=== PATIENT | female | born 1955 | race Caucasian/White ===

== ENCOUNTER 2018-11-18 20:57 | Inpatient (IN) | payer MEDICARE, OTHER ==
--- NOTE | 2018-11-18 21:20 | ED Physician Chart ---
ED Chief Complaint/HPI - Patient Information Date Seen:: 11/18/18 Time Seen:: 21:15 Chief Complaint:: cough and congestion History of Present Illness:: this is a 63 yo female who is concerned about generalize weakness, abdominal pain and has diabetes, hypertension and anxiety. Allergies:: Allergies Allergy/AdvReac Type Severity Reaction Status Date / Time No Known Allergies Allergy Verified 11/18/18 21:05 Vitals:: Vital Signs - 8 hr 11/18/18 21:00 Temp 98.1 F HR 90 RR 18 BP 137/65 O2 Sat % 96 Historian:: Patient Review:: Nurse's Note Reviewed ED Review of Systems - Review of Systems General/Constitutional: No fever, No chills, No weight loss, No weakness, No diaphoresis, No edema, No loss of appetite Skin: No skin lesions, No rash, No bruising Head: No headache, No light-headedness Eyes: No loss of vision, No pain, No diplopia ENT: No earache, No nasal drainage, No sore throat, No tinnitus Neck: No neck pain, No swelling, No thyromegaly, No stiffness, No mass noted Cardio Vascular: No chest pain, No palpitations, No PND, No orthopnea, No edema Pulmonary: No SOB, No cough, No sputum, No wheezing GI: No nausea, No vomiting, No diarrhea, Pain, No melena, No hematochezia, No constipation, No hematemesis G/U: No dysuria, No frequency, No hematuria Musculoskeletal: No bone or joint pain, No back pain, No muscle pain Endocrine: No polyuria, No polydipsia Psychiatric: No prior psych history, No depression, No anxiety, No suicidal ideation Hematopoietic: No bruising, No lymphadenopathy Allergic/Immuno: No urticaria, No angioedema Neurological: No syncope, No focal symptoms, No weakness, No paresthesia, No headache, No seizure, No dizziness, No confusion, No vertigo ED Past Medical History - Past Medical History Obtainable: Yes Past Medical History: HTN, DM, CAD, Dyslipidemia, PUD/GERD, Other (gout) Family History: None Social History: Smoker, No Alcohol, No Drug Use, Care Facility Surgical History: None Psychiatricy History: Depression, Dementia Family Medical History - Family Member Mother History Unknown: Yes ED Physical Exam - Physical Examination General/Constitutional: Awake, Well-developed, well-nourished, Alert, No distress, GCS 15, Non-toxic appearing, Ambulatory Other Gen/Cons comments:: obese Head: Atraumatic Eyes: Lids, conjuctiva normal, PERRL, EOMI Skin: Nl inspection, No rash, No skin lesions, No ecchymosis, Well hydrated, No lymphadenopathy ENMT: External ears, nose nl, Nasal exam nl, Lips, teeth, gums nl Neck: Nontender, Full ROM w/o pain, No JVD, No nuchal rigidity, No bruit, No mass, No stridor Respiratory: Nl effort/Exclusion, Clear to Auscultation, No Wheeze/Rhonchi/Rales Other Respiratory comments:: small puncture wound noted on the anterior chest wall Cardio Vascular: RRR, No murmur, gallop, rubs, NL S1 S2 GI: No tenderness/rebounding/guarding, No organomegaly, No hernia, Normal BS's, Nondistended, No mass/bruits, No McBurney tenderness : No CVA tenderness Extremities: No tenderness or effusion, Full ROM, normal strength in all extremities, No edema, Normal digits & nails Neuro/Psych: Alert/oriented, DTR's symmetric, Normal sensory exam, Normal motor strength, Judgement/insight normal, Mood normal, Normal gait, No focal deficits Misc: Normal back, No paraspinal tenderness ED Labs/Radiology/EKG Results - Radiology Results Results: chest x-ray = right middle lobe infiltrate. - EKG Interpretations EKG Time:: 21:23 Rate & Rhythm: rate=92 sinus Show Low: right axis Intervals: no ectopy ED Septic Shock - . Is Septic Shock (SBP<90, OR Lactate>4 mmol\L) present?: No - <6hrs of presentation: Vital Signs: Vital Signs - 8 hr 11/18/18 21:00 Temp 98.1 F HR 90 RR 18 BP 137/65 O2 Sat % 96 ED Reassessment (Disposition) - Diagnosis Diagnosis:: pneumonia diabetes mellitus two large ventral hernias. - Patient Disposition Discharge/Transfer:: Acute Care w/in this hosp Admitting Medical Physician:: Avel Fowler Condition at Disposition:: Stable
[2018-11-18 21:49] LABS: % BASOPHILS 0.8 % (0.0-2.0); % EOSINOPHILS 1.6 % (0.0-5.0); % LYMPHOCYTES 22.7 % (20.0-50.0); % MONOCYTES 6.6 % (2.0-10.0); % NEUTROPHILS 68.3 % (40.0-80.0); BASOPHILE ABSOLUTE 0.1 Th/cumm (0-0.2); EOSINOPHILE ABSOLUTE 0.2 Th/cmm (0.1-0.4); HEMATOCRIT 35.6 % (41.0-60); HEMOGLOBIN 11.7 gm/dL (12-16); LYMPHOCYTE ABSOLUTE 2.7 Th/cmm (1.5-3.0); MEAN CELL VOLUME 90.2 fl (81-100); MEAN CORPUSCULAR HEMOGLOBIN 29.7 pg (27.0-31.0); MEAN PLATELET VOLUME 6.8 fl; MONOCYTE ABSOLUTE 0.8 Th/cmm (0.3-1.0); NEUTROPHILE ABSOLUTE 8.3 Th/cmm (1.8-8.0); PLATELET COUNT 404 Th/cmm (150-400); RED BLOOD COUNT 3.94 Mil/cmm (3.80-5.10); RED CELL DISTRIBUTION WIDTH 12.1 % (11.5-20.0); WHITE BLOOD COUNT 12.1 Th/cmm (4.8-10.8)
[2018-11-18 22:05] LABS: ALB/GLOB RATIO 1.1 (1.0-1.8); ALBUMIN 3.9 gm/dL (3.7-5.3); ALKALINE PHOSPHATASE 116 U/L (34-104); ANION GAP 12.3 (7.0-16.0); BILIRUBIN,TOTAL 0.4 mg/dL (0.3-1.0); BUN - UREA NITROGEN 22 mg/dL (7-25); CALCIUM SERUM 9.9 mg/dL (8.6-10.3); CARBON DIOXIDE 24.7 mEq/L (21.0-31.0); CHLORIDE 100 mEq/L (98-107); CREATININE - SERUM 0.9 mg/dL (0.6-1.2); GFR AFRICAN-AMERICAN > 60.0 ml/min (>90); GFR NON AFRICAN-AMERICAN > 60.0 ml/min; GLUCOSE 425 mg/dL (70-105); SGOT 10 U/L (13-39); SGPT/ALT 13 U/L (7-52); SODIUM SERUM 133 mEq/L (136-145); TOTAL PROTEIN,SERUM 7.6 gm/dL (6.0-8.3)
[2018-11-18 22:06] LABS: INR 0.9 (0.5-1.4); PROTHROMBIN TIME (TEST) 9.4 SECONDS (9.5-11.5)
[2018-11-18 22:07] LABS: URINE SOURCE CLEAN C
[2018-11-18 22:09] LABS: URINE BILIRUBIN NEGATIVE (NEGATIVE); URINE BLOOD NEGATIVE (NEGATIVE); URINE GLUCOSE (UA) >=1000 mg/dL (NEGATIVE); URINE KETONE NEGATIVE (NEGATIVE); URINE LEUKOCYTE ESTERASE NEGATIVE (NEGATIVE); URINE MICROSCOPIC INDICATED? YES; URINE NITRATE NEGATIVE (NEGATIVE); URINE PROTEIN NEGATIVE (NEGATIVE); URINE UROBILINOGEN 0.2 E.U./dL (0.2 - 1.0)
[2018-11-18 22:10] LABS: ACETAMINOPHEN < 10.0 ug/mL (10.0-30.0); URIC ACID 6.1 mg/dL (2.3-6.6)
[2018-11-18 22:14] LABS: URINE COLOR STRAW
[2018-11-18 22:15] LABS: URINE CLARITY SLIGHT HAZY (CLEAR)
[2018-11-18 22:16] LABS: CHOLESTEROL 157 mg/dL (<200); HDL -HIGH DENSITY LIPOPROTEIN 39 mg/dL (23-92); TRIGLYCERIDES 153 mg/dL (<150)
[2018-11-18 22:18] LABS: URINE BACTERIA NONE SEEN /hpf (NONE SEEN); URINE EPITHELIAL CELLS FEW /lpf (FEW); URINE RBC NONE SEEN /hpf (0-5); URINE WBC 0-2 /hpf (0-5)
[2018-11-18 22:20] LABS: SALICYLATES (ASPIRIN) < 25.0 mg/L (30.0-100.0)
[2018-11-18] MEDS ORDERED: INSULIN HUMAN REGULAR 100 UNITS/ML UNIT IVP ONE (22:36)
[2018-11-18] MEDS ORDERED: INSULIN HUMAN REGULAR 100 UNITS/ML UNIT ONE (22:41)
[2018-11-18] MEDS ORDERED: Azithromycin 500 MG in Sodium Chloride 0.9% 250 ML IV ONE (22:47)
[2018-11-18] MEDS ORDERED: Albuterol Nebulizer 2.5mg/3mL HHN PRN (23:34)
[2018-11-18] MEDS ORDERED: Non-Formulary Item 1 EA (Glucagon,Human Recombinant [Glucagon Emergency Kit] 1 MG) IM PRN (23:34)
[2018-11-18] MEDS ORDERED: Magnesium Hydroxide (MOM) 30 mL UDC PO PRN (23:34)
[2018-11-18] MEDS ORDERED: guaiFENesin 200 MG/10 ML UDC PO PRN (23:35)
[2018-11-19 00:38] VITALS: BP 113/63
[2018-11-19] MEDS: Sodium Chloride 0.9% 1,000 ML IV SCH ×2 (01:15→13:51)
[2018-11-19] MEDS ORDERED: Pneumococcal Vaccine 0.5 mL Vial IM ONE (03:04)
[2018-11-19] MEDS: Ipratropium Neb 0.5 mg/2.5 mL UD HHN SCH ×4 (07:02→18:42)
[2018-11-19] MEDS: Albuterol Nebulizer 2.5mg/3mL HHN SCH ×4 (07:02→18:42)
[2018-11-19] MEDS: INSULIN HUMAN REGULAR 100 UNITS/ML UNIT SUBQ SCH ×2 (07:30→12:00)
[2018-11-19] MEDS: Multivitamin Tab PO SCH (09:53)
--- NOTE | 2018-11-19 10:51 | Diagnostic Imaging Report ---
CHEST X-RAY: AP view INDICATION: Cough COMPARISON: None FINDINGS: There is mild increased interstitial lung markings. There is no focal consolidation or pleural effusions The heart is normal in size. The osseous structures demonstrate no acute abnormalities. IMPRESSION: Mild increased central lung markings, nonspecific. Note, faint infiltrate of the left base is less likely but cannot be completely excluded. Correlate clinically. No focal consolidation identified.
--- NOTE | 2018-11-19 13:40 | History & Physical ---
ADMIT DATE: 11/19/2018 REQUESTING CONSULTATION: Avel Fowler D.O. REASON FOR CONSULTATION: Generalized weakness and the patient is being on a psych medications. HISTORY OF PRESENT ILLNESS: This patient is a 63-year-old woman, resident of [facility]. Information obtained directly interviewing the patient as well as reviewing the admission papers. The patient at this time is not able to provide much of information. The patient has been reported to have been getting increasingly agitated and aggressive according to the EMT, but the patient is also reported to have been having difficult time to articulate when I tried to talk to the patient and the patient is reporting that she is feeling too tired and does not want to take any medications. The patient is stating that she has been taking the Seroquel that is making her too sleepy and does not want to be on that. The patient at this time is not providing much of any other information. The patient is stating that she is too tired and wants to go to bed. PAST PSYCHIATRIC HISTORY: The patient denies any prior psychiatric hospitalizations and the patient at this time is stating that she could not feel it out why she has been taking the Seroquel. SUBSTANCE ABUSE HISTORY: None. PHYSICAL OR SEXUAL ABUSE HISTORY: None. SOCIAL HISTORY: The patient is a resident of the [facility]. MENTAL EXAMINATION: The patient is a 63-year-old moderately obese, superficially cooperative. Eye contact is poor. Mood is noted to be irritable. Affect is constricted. Insight and judgment are noted to be still impaired. Impulse control is noted to be poor at the time of the hospitalization, but at this time the patient is too drowsy and is not able to provide much of any information to me. The patient is alert and awake. Attention span and concentration are noted to be poor. The patient's short and long-term are noted to be intact. DIAGNOSTIC IMPRESSION: AXIS I: Mood disorder, not otherwise specified. PLAN: To hold the Seroquel for now until the patient is going to be fully assessed. Thank you, Dr. Fowler for allowing me to participate in the care of the patient. JOB# [id number]
[2018-11-19] MEDS ORDERED: GLUCAGON HCl 1 MG KIT IM PRN (13:45)
[2018-11-19] MEDS ORDERED: Dextrose 50% 50 mL Abboject IVP PRN (13:45)
--- NOTE | 2018-11-19 14:19 | History & Physical ---
ADMIT DATE: 11/18/2018 CHIEF COMPLAINT: Not feeling well, congestion. HISTORY OF PRESENT ILLNESS: This is a 63-year-old female with history of diabetes, hypertension, psych disorder, gout, admitted from nursing facility secondary to not feeling well and not acting a bit depressed, according to nursing staff refusing to take medication. The patient wanted to be evaluated. The patient was seen in the ER by Dr. Vazquez, to have a repeat chest x-ray. PAST MEDICAL HISTORY: As mentioned in history of present illness. PAST SURGICAL HISTORY: Status post abdominal surgery. ALLERGIES: No known drug allergies. MEDICATIONS: Tylenol, Colace, gabapentin, ibuprofen, Lantus, insulin sliding scale, losartan, metformin, multivitamin, Seroquel. FAMILY HISTORY: Noncontributory. SOCIAL HISTORY: The patient avid smoker, drinks occasionally. No intravenous drug use. 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 REVIEW OF SYSTEMS: GENERAL: Complains of not feeling well. HEAD, EYES, EARS, NOSE, AND THROAT: No blurred vision or pain. LUNGS: COPD. The patient gets severe shortness of breath, questionable history of emphysema. HEART: The patient with hypertension, diabetes. ABDOMEN: No nausea, vomiting, pain. : The patient denies increased frequency or dysuria. NEUROLOGIC: No complaints of being weak. Get easily tired. History of neuropathy. PHYSICAL EXAMINATION: VITAL SIGNS: Blood pressure 160/50, respirations 18, pulse 71, temperature 98.0. GENERAL: Middle-aged female. NECK: Supple. No mass. LUNGS: Equal breath sounds with few rhonchi. HEART: Regular rate and rhythm. Systolic ejection murmur. ABDOMEN: Soft, globular. EXTREMITIES: Positive excoriations limited. LABORATORY DATA: WBC 12, hemoglobin 11, platelets 404. INR 0.9. Sodium 133, potassium 4.0, BUN 22, creatinine 0.9, blood sugar ____ lowest, cholesterol 157. ASSESSMENT AND PLAN: Pneumonia, diabetes, hypertension, obesity, peripheral neuropathy, psych disorder, gait instability, gout, leukocytosis, anemia, hyponatremia. We will continue treatment. Continue IV antibiotic. ____ follow up. We will review the chest x-ray. Continue with current management. We will refer the patient for psych as well. JOB# [id number]
[2018-11-19] MEDS: INSULIN LISPRO SLIDING SCALE 100 UNITS/ML UNIT SUBQ SCH ×3 (16:52→23:13)
[2018-11-19] MEDS ORDERED: Insulin Glargine 100 units/ml 10ml Vial SUBQ SCH (21:00)
[2018-11-20 06:44] LABS: % BASOPHILS 0.8 % (0.0-2.0); % EOSINOPHILS 2.4 % (0.0-5.0); % LYMPHOCYTES 36.9 % (20.0-50.0); % MONOCYTES 8.2 % (2.0-10.0); % NEUTROPHILS 51.7 % (40.0-80.0); BASOPHILE ABSOLUTE 0.1 Th/cumm (0-0.2); EOSINOPHILE ABSOLUTE 0.2 Th/cmm (0.1-0.4); HEMATOCRIT 33.5 % (41.0-60); HEMOGLOBIN 11.3 gm/dL (12-16); LYMPHOCYTE ABSOLUTE 3.2 Th/cmm (1.5-3.0); MEAN CORPUSCULAR HEMOGLOBIN 29.9 pg (27.0-31.0); MEAN CORPUSCULAR HGB CONC 33.6 pg (28.0-36.0); MEAN PLATELET VOLUME 6.9 fl; MONOCYTE ABSOLUTE 0.7 Th/cmm (0.3-1.0); NEUTROPHILE ABSOLUTE 4.6 Th/cmm (1.8-8.0); PLATELET COUNT 370 Th/cmm (150-400); RED BLOOD COUNT 3.77 Mil/cmm (3.80-5.10); RED CELL DISTRIBUTION WIDTH 12.5 % (11.5-20.0); WHITE BLOOD COUNT 8.8 Th/cmm (4.8-10.8)
[2018-11-20 06:52] LABS: ALBUMIN 3.5 gm/dL (3.7-5.3); ALKALINE PHOSPHATASE 85 U/L (34-104); ANION GAP 12.1 (7.0-16.0); BILIRUBIN,TOTAL 0.3 mg/dL (0.3-1.0); BUN - UREA NITROGEN 18 mg/dL (7-25); CALCIUM SERUM 9.8 mg/dL (8.6-10.3); CHLORIDE 107 mEq/L (98-107); CREATININE - SERUM 0.5 mg/dL (0.6-1.2); GFR AFRICAN-AMERICAN > 60.0 ml/min (>90); GFR NON AFRICAN-AMERICAN > 60.0 ml/min; GLUCOSE 243 mg/dL (70-105); MAGNESIUM 1.8 mg/dL (1.9-2.7); POTASSIUM SERUM 4.1 mEq/L (3.5-5.1); SGOT 9 U/L (13-39); SGPT/ALT 12 U/L (7-52); SODIUM SERUM 140 mEq/L (136-145); TOTAL PROTEIN,SERUM 6.9 gm/dL (6.0-8.3)
[2018-11-20] MEDS: Albuterol Nebulizer 2.5mg/3mL HHN SCH ×3 (06:57→14:15)
[2018-11-20] MEDS: Ipratropium Neb 0.5 mg/2.5 mL UD HHN SCH ×3 (06:57→14:15)
--- NOTE | 2018-11-20 07:36 | Diagnostic Imaging Report ---
Chest x-ray single view History: Pneumonia Comparison: 11/18/2018 The heart size is normal. No focal pulmonary parenchymal processes. No hilar or mediastinal abnormalities. Impression: No acute abnormalities
[2018-11-20] MEDS: INSULIN LISPRO SLIDING SCALE 100 UNITS/ML UNIT SUBQ SCH ×3 (08:19→16:51)
[2018-11-20] MEDS: Multivitamin Tab PO SCH (09:57)
--- NOTE | 2018-11-20 20:40 | Discharge Summary ---
DATE OF DISCHARGE: 11/20/2018 CHIEF COMPLAINT: Congestion. FINAL DIAGNOSES: Pneumonia, which is improved. Diabetes, hypertension, obesity, peripheral neuropathy, psych disorder, gait stability, gout, leukocytosis, anemia, and electrolyte abnormalities. HISTORY: This is a 63-year-old female with history of diabetes, hypertension, psych disorder, admitted from nursing facility. The patient was brought in the ER, noted to have an early pneumonia. The patient is admitted for further management. PHYSICAL EXAMINATION: VITAL SIGNS: Blood pressure 130/67, respirations 20, pulse 76, temperature ____. GENERAL: Elderly female, morbidly obese. NECK: Supple. No mass. LUNGS: Equal breath sounds with few rhonchi. HEART: Regular rate and rhythm without appreciable murmur. ABDOMEN: Soft, globular. EXTREMITIES: Positive excoriation. NEUROLOGIC: Limited. HOSPITAL COURSE: The patient was admitted to medical floor. Continue oxygen. We are going to treat with IV antibiotic, IV hydration. Her white count on admission was 12.1. It improved to 8.8. Chest x-ray has also improved. The patient was seen by Psychiatry. CONDITION ON DISCHARGE: Fair. DISCHARGE INSTRUCTIONS: The patient to continue with p.o. medication and have a psych followup. JOB# [id number]
--- NOTE | 2018-11-21 03:03 | Progress Notes ---
DATE: 11/20/2018 SUBJECTIVE: Staff was spoken to. The patient is interviewed. Mood is noted to be less irritable. Affect is appropriate. The patient is not suicidal or homicidal. The patient's insight and judgment noted to be fair. Impulse control is also noted to be fair. No side effects to the medications are noted. The patient is stating that she is perfectly fine and there is no need for her to be seeing a psychiatrist. ASSESSMENT: The patient is stabilizing. PLAN: To continue the patient on the current medications and follow. JOB# [id number]
== END 2018-11-20 18:40 | DRG 871 ==
LOC: ER 20:57 → TELE 23:20 → MSI 11-19 11:50
PROVIDERS: ADMIT Internal Medicine; ATTEND Internal Medicine
DX: A41.9 Sepsis, unspecified organism (principal); J18.9 Pneumonia, unspecified organism; E87.1 Hypo-osmolality and hyponatremia; I10 Essential (primary) hypertension; E66.9 Obesity, unspecified; G62.9 Polyneuropathy, unspecified; M10.9 Gout, unspecified; D64.9 Anemia, unspecified; D72.829 Elevated white blood cell count, unspecified; F39 Unspecified mood [affective] disorder; K43.9 Ventral hernia without obstruction or gangrene; F17.200 Nicotine dependence, unspecified, uncomplicated; E11.42 Type 2 diabetes mellitus with diabetic polyneuropathy
CPT/HCPCS: 36415-UA; 71045-TC; 80053-TC; 80061-TC; 80320-TC; 80329-TC; 81001-TC; 82948-90; 83036-90; 83735-TC; 83880-TC; 84443-TC; 84484-TC; 84550-TC; 85025-TC; 85610-TC; 85730-TC; 86592-TC; 87070; 90779; 93005; 94760; J0456; J0692; J0696; J1815; J1885; J7030; J7613; Z7610